=== PATIENT | male | born 1975 | race African-American/Black ===

== ENCOUNTER 2017-10-29 11:10 | Inpatient (IN) | payer MEDICARE, MEDICAID ==
--- NOTE | 2017-10-29 11:48 | ED ---
Psych HPI - General Stated Complaint: Mental Health Time Seen by Provider: 10/29/17 11:16 Source: patient, EMS, RN notes reviewed Mode of arrival: EMS Limitations: no limitations - History of Present Illness Initial Comments: This is a 42-year-old male presents emergency Department from [place] for psychiatric eval. Patient states that he has a history of psychiatric disorders states is not take his medication because he does not agree with him. Patient states he was at [facility] recently. Patient also has a history of cocaine abuse currently at [place]. Patient denies any new physical complaints he has chronic left-sided pain been out of the usual. Denies chest pain, shortness breath, nausea vomiting. - Related Data Home Medications Medication Instructions Recorded Confirmed Acetaminophen Tab [Tylenol Tab] 650 mg PO Q4H PRN MDD 6 tabs 10/29/17 10/29/17 Chlorpheniramine Maleate 4 mg PO Q4H PRN 10/29/17 10/29/17 Chlorthalidone [Hygroton] 25 mg PO DAILY@0630 10/29/17 10/29/17 Cholecalciferol [Vitamin D3] 1,000 unit PO DAILY@0630 10/29/17 10/29/17 Elviteg/Cob/Emtri/Tenof Alafen 1 tab PO DAILY@0600 10/29/17 10/29/17 [Genvoya Tablet] Esomeprazole Magnesium [NexIUM] 20 mg PO BID@0630,1700 10/29/17 10/29/17 Ibuprofen [Motrin] 600 mg PO Q6HR PRN 10/29/17 10/29/17 Multivitamins, Thera [Multivitamin 1 tab PO DAILY 10/29/17 10/29/17 (formulary)] PARoxetine [Paxil] 10 mg PO DAILY@0630 10/29/17 10/29/17 Paliperidone [Invega] 9 mg PO DAILY@0630 10/29/17 10/29/17 QUEtiapine FUMARATE [SEROquel] 600 mg PO HS 10/29/17 10/29/17 Thiamine [Vitamin B-1] 100 mg PO DAILY 10/29/17 10/29/17 amLODIPine [Norvasc] 5 mg PO DAILY@0630 10/29/17 10/29/17 cloNIDine HCL [Catapres] 0.1 - 0.3 mg PO BID PRN 10/29/17 10/29/17 Allergies Allergy/AdvReac Type Severity Reaction Status Date / Time Benzodiazepines Allergy Unknown Verified 10/29/17 11:45 Review of Systems ROS Statement: Those systems with pertinent positive or pertinent negative responses have been documented in the HPI. ROS Other: All systems not noted in ROS Statement are negative. Past Medical History Past Medical History: Unable to Obtain History of Any Multi-Drug Resistant Organisms: None Reported Past Surgical History: Unable to Obtain Past Psychological History: Schizophrenia Smoking Status: Never smoker Past Alcohol Use History: None Reported Past Drug Use History: Cocaine General Exam Limitations: no limitations General appearance: alert, in no apparent distress Head exam: Present: atraumatic, normocephalic, normal inspection Eye exam: Present: normal appearance, PERRL, EOMI. Absent: scleral icterus, conjunctival injection, periorbital swelling ENT exam: Present: normal exam, mucous membranes moist Neck exam: Present: normal inspection. Absent: tenderness, meningismus, lymphadenopathy Respiratory exam: Present: normal lung sounds bilaterally. Absent: respiratory distress, wheezes, rales, rhonchi, stridor Cardiovascular Exam: Present: regular rate, normal rhythm, normal heart sounds. Absent: systolic murmur, diastolic murmur, rubs, gallop, clicks GI/Abdominal exam: Present: soft, normal bowel sounds. Absent: distended, tenderness, guarding, rebound, rigid Back exam: Absent: CVA tenderness (R), CVA tenderness (L) Psychiatric exam: Present: anxious. Absent: homicidal ideation, suicidal ideation Skin exam: Present: warm, dry, intact, normal color. Absent: rash Course Vital Signs 10/29/17 11:22 Temperature 97.6 F Pulse Rate 54 L Respiratory 16 Rate Blood Pressure 156/77 O2 Sat by Pulse 100 Oximetry Disposition Clinical Impression: Psychosis Disposition: ADMITTED IP TO THIS HOSP Condition: Stable Referrals: Nonstaff,Physician [REFERRING] - 1-2 days
[2017-10-29 13:44] LABS: Amphetamine Screen,Urine Not Detected (NotDetected); Barbiturate Screen,Urine Not Detected (NotDetected); Benzodiazepines Screen,Urine Not Detected (NotDetected); Cocaine Screen,Urine Not Detected (NotDetected); Methadone Screen, Urine Not Detected (NotDetected); Opiate Screen,Urine Not Detected (NotDetected); Oxycodone Screen, Urine Not Detected (NotDetected); Phencyclidine Screen,Urine Not Detected (NotDetected); Tricyclic Antidepressant,Urine Not Detected (NotDetected); Urn Cannabinoid Scrn Not Detected (NotDetected)
[2017-10-29 15:46] VITALS: BMI 23.1
[2017-10-29] MEDS ORDERED: MAGNESIUM HYDROXIDE 2,400 MG/10 ML CUP PO PRN (16:11)
[2017-10-29] MEDS ORDERED: ACETAMINOPHEN TAB 325 MG TAB PO PRN (16:11)
[2017-10-29] MEDS ORDERED: MAG HYDROX/AL HYDROX/SIMETH 30 ML CUP PO PRN (16:11)
[2017-10-29] MEDS ORDERED: diphenhydrAMINE 25 MG CAP PO PRN (16:13)
[2017-10-29] MEDS ORDERED: LORazepam 2 MG/ML INJ IM PRN (16:27)
[2017-10-29] MEDS ORDERED: ZIPRASIDONE 20 MG VIAL IM PRN (16:27)
[2017-10-29] MEDS ORDERED: LORazepam 1 MG TAB PO PRN (16:27)
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
[2017-10-29] MEDS: PANTOPRAZOLE 40 MG TABLET PO SCH (17:27)
[2017-10-29 17:55] LABS: Appearance,Urine Clear (Clear); Bilirubin,Urine Negative (Negative); Blood,Urine Negative (Negative); Color,Urine Yellow; Glucose,Urine (UA) Negative (Negative); Ketones,Urine Negative (Negative); Leukocyte Esterase,Urine Negative (Negative); Nitrite,Urine Negative (Negative); Protein,Urine Negative (Negative); Specific Gravity,Urine 1.023 (1.001-1.035); Urobilinogen,Urine <2.0 mg/dL (<2.0)
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
[2017-10-29 18:45] LABS: Anisocytosis Slight; HCT 39.3 % (39.0-53.0); Hypochromasia Moderate; MCH 23.5 pg (25.0-35.0); MCHC 30.5 g/dL (31.0-37.0); MCV 77.1 fL (80.0-100.0); Mean Platelet Volume 8.7; Microcytosis Slight; Platelet Count 153 k/uL (150-450); RDW 17.2 % (11.5-15.5); WBC 6.7 k/uL (3.8-10.6)
--- NOTE | 2017-10-29 19:07 | XR ---
EXAMINATION TYPE: XR chest 2V DATE OF EXAM: 10/29/2017 COMPARISON: NONE HISTORY: Short of breath TECHNIQUE: Frontal and lateral views of the chest are obtained. FINDINGS: Heart and mediastinum are normal. Lungs are clear. Diaphragm is normal. Bony thorax appear s normal. Exam is limited by the arms over the heart on the lateral view. IMPRESSION: Normal chest
[2017-10-29 19:11] LABS: ALT 20 U/L (21-72); AST 19 U/L (17-59); Alkaline Phosphatase 76 U/L (38-126); Anion Gap 11 mmol/L; Blood Urea Nitrogen 17 mg/dL (9-20); Calcium 10.1 mg/dL (8.4-10.2); Carbon Dioxide 31 mmol/L (22-30); Chloride 98 mmol/L (98-107); Glucose 135 mg/dL (74-99); Magnesium 1.9 mg/dL (1.6-2.3); Phosphorus 4.3 mg/dL (2.5-4.5); Potassium 4.3 mmol/L (3.5-5.1); Sodium 140 mmol/L (137-145); Total Bilirubin 0.2 mg/dL (0.2-1.3); Total Protein 6.7 g/dL (6.3-8.2)
[2017-10-29] MEDS: PALIPERIDONE 3 MG TAB.ER.24 PO SCH (21:04)
[2017-10-29] MEDS: NYSTATIN 100,000 UNIT/ML SUSP 500,000 UNIT/5 ML CUP PO SCH (21:09)
[2017-10-30] MEDS: CHLORTHALIDONE 25 MG TAB PO SCH (06:36)
[2017-10-30] MEDS: CHOLECALCIFEROL 1,000 UNIT TAB PO SCH (06:37)
[2017-10-30] MEDS: amLODIPine 5 MG TAB PO SCH (06:37)
[2017-10-30] MEDS: PANTOPRAZOLE 40 MG TABLET PO SCH ×2 (06:37→16:57)
[2017-10-30] MEDS: (Elviteg/Cob/Emtri/Tenof Alafen [Genvoya Tablet] 1 TAB) PO SCH (06:38)
[2017-10-30] MEDS: NYSTATIN 100,000 UNIT/ML SUSP 500,000 UNIT/5 ML CUP PO SCH ×4 (09:06→21:17)
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
[2017-10-30] MEDS: MULTIVITAMINS, THERA 1 EACH TAB PO SCH (12:45)
[2017-10-30] MEDS: FERROUS SULFATE 325 MG TAB PO SCH (19:07)
[2017-10-30] MEDS: BENZOCAINE/MENTHOL LOZENG 1 EACH LOZENGE MUCOUS MEM PRN (19:09)
[2017-10-30] MEDS: PALIPERIDONE 3 MG TAB.ER.24 PO SCH (21:17)
[2017-10-31 01:58] LABS: Hemoglobin A1C 6.1 % (4.0-6.0)
[2017-10-31 02:16] LABS: Iron Saturation 5.32 (15.00-50.00)
[2017-10-31] MEDS ORDERED: guaiFENesin SYRUP 100MG/5ML 200 MG/10 ML CUP PO PRN (03:28)
[2017-10-31] MEDS: (Elviteg/Cob/Emtri/Tenof Alafen [Genvoya Tablet] 1 TAB) PO SCH ×2 (03:52→08:48)
[2017-10-31] MEDS: amLODIPine 5 MG TAB PO SCH (05:58)
[2017-10-31] MEDS: PANTOPRAZOLE 40 MG TABLET PO SCH ×2 (05:58→16:34)
[2017-10-31] MEDS: CHOLECALCIFEROL 1,000 UNIT TAB PO SCH (05:58)
[2017-10-31] MEDS: CHLORTHALIDONE 25 MG TAB PO SCH (05:58)
[2017-10-31] MEDS: FERROUS SULFATE 325 MG TAB PO SCH ×2 (08:47→16:33)
[2017-10-31] MEDS: NYSTATIN 100,000 UNIT/ML SUSP 500,000 UNIT/5 ML CUP PO SCH ×4 (08:47→21:06)
[2017-10-31] MEDS: LORATADINE 10 MG TAB PO SCH (08:47)
[2017-10-31] MEDS: BENZOCAINE/MENTHOL LOZENG 1 EACH LOZENGE MUCOUS MEM PRN (08:49)
[2017-10-31] MEDS ORDERED: MULTIVITAMINS, THERA 1 EACH TAB ONE (12:00)
[2017-10-31 12:31] LABS: T4/T8 Ratio (CD4:CD8) 1.4 (1.0-3.7)
[2017-10-31] MEDS: MULTIVITAMINS, THERA 1 EACH TAB PO SCH (13:36)
--- NOTE | 2017-10-31 14:00 | P.PN ---
Progress Note - Text Progress Note Date: 10/31/17 Interval History: Patient is a 42-year-old male who was seen today. Patient states that he slept well and is eating well. Patient reports no further headaches. Patient reports he continues to hear voices, stating that they are singing to him. Patient continued to ramble on after certain questions, some of it religiously preoccupied. Patient continues to cough and states that he thinks it is slightly better today. Patient reports that he does live with his father and 2 brothers and that his mother does not live with them but close by. Patient also reports that he thought he did well on Invega long-acting injectable. Mental Status: Appearance/Attitude: Patient is dressed in a hospital gown, stating that he is not wearing street clothes so that we can distinguish staff from patients, makes good eye contact and is cooperative Behavior: Patient does not display any psychomotor agitation or retardation Speech/Language: Patient's speech is spontaneous, at times rambling of normal volume and rhythm and he is coherent but not relevant at times Thought Process: Patient is tangential, religiously preoccupied and at times exhibits loose associations Thought Content: Patient reports that he is hearing voices, he describes them as singing and denies any visual hallucinations and remains religiously preoccupied, at times calling staff God. Patient reports that he slept well last evening, is eating well. He reports no headaches. Patient continues to have a cough Suicidal/Homicidal Ideation: Patient denies any current suicidal or homicidal ideation Sensorium/Cognition: Patient is alert and oriented to person, place, and time and his recent and remote memory are grossly intact. Mood/Affect: Patient's mood is pleasant and his affect is appropriate to his mood Insight/Judgment: Patient's insight and judgment are impaired Assessment: Patient continues to have auditory hallucinations, religiously preoccupied and at times is seen talking to himself on the unit. Patient has been cooperative and attending groups and activities. Patient states that his crack cocaine use was daily prior to his admission to [facility]. Patient continues to have a cough but denies any current headaches. Patient reports that he did well when he was on Invega long-acting injectable and is unable to tell me why he stopped going to the clinic or receiving his medication. Plan: Patient will continue on Invega 9 mg at bedtime and should the patient continued to show some progress will restart Invega long-acting injectable. Patient is being followed by the medical billing and coding specialist for his low hemoglobin, mildly elevated hemoglobin A1c. Patient has received his antiviral medication from [facility] and has been restarted on this. Patient continues to require hospitalization to further stabilize and decrease his psychotic symptoms.
[2017-10-31] MEDS: PALIPERIDONE 3 MG TAB.ER.24 PO SCH (21:06)
[2017-11-01] MEDS: PANTOPRAZOLE 40 MG TABLET PO SCH ×2 (05:41→16:51)
[2017-11-01] MEDS: CHLORTHALIDONE 25 MG TAB PO SCH (05:42)
[2017-11-01] MEDS: amLODIPine 5 MG TAB PO SCH (05:42)
[2017-11-01] MEDS: CHOLECALCIFEROL 1,000 UNIT TAB PO SCH ×2 (05:42→09:17)
[2017-11-01] MEDS: (Elviteg/Cob/Emtri/Tenof Alafen [Genvoya Tablet] 1 TAB) PO SCH (05:43)
[2017-11-01] MEDS: MULTIVITAMINS, THERA 1 EACH TAB PO SCH (09:17)
[2017-11-01] MEDS: LORATADINE 10 MG TAB PO SCH (09:17)
[2017-11-01] MEDS: NYSTATIN 100,000 UNIT/ML SUSP 500,000 UNIT/5 ML CUP PO SCH ×4 (09:18→21:08)
[2017-11-01] MEDS: FERROUS SULFATE 325 MG TAB PO SCH ×2 (09:19→16:51)
[2017-11-01] MEDS: BENZOCAINE/MENTHOL LOZENG 1 EACH LOZENGE MUCOUS MEM PRN (10:18)
--- NOTE | 2017-11-01 12:08 | P.PN ---
Progress Note - Text Progress Note Date: 11/01/17 Interval History: Patient is a 42-year-old male who was seen today, he was found in the hallway talking to himself. Patient during the interview was exhibiting loose associations and rambling. Patient reported that he was not hearing voices and stated that his cough was better and he slept better last evening. Patient states that gnosticist continues to be important for him and he does spend a lot of time reading the Bible. Patient is again dressed in a hospital gown when asked if he would like to wear his street clothes he says no he was prescribed these clothes. Patient denies any current headache Mental Status: Appearance/Attitude: Patient is dressed in a hospital gown, makes intermittent eye contact and is cooperative Behavior: Patient does not exhibit any psychomotor agitation or retardation, was seen in the hallway on approach talking to himself Speech/Language: Patient's speech is rambling, of normal volume and rhythm and he is coherent Thought Process: Patient exhibits loose associations Thought Content: Patient denies auditory or visual hallucinations, patient was seen on the unit talking to himself he denies any paranoid ideation and remains religiously preoccupied. Patient states that he is no longer having any headaches and that his cough is better. He states that he slept better and his appetite is good. Suicidal/Homicidal Ideation: Denies any current suicidal or homicidal ideation Sensorium/Cognition: Patient is alert and oriented to person, place, and time and his recent and remote memory are grossly intact Mood/Affect: Patient's mood is pleasant and his affect is blunted Insight/Judgment: Patient's insight and judgment are poor Assessment: Patient continues to be observed talking to himself on the unit, exhibiting loose associations and remains religiously preoccupied. Patient states that his cough and headache are improved and that he slept better and is eating well. Patient attends some groups and activities. Plan: Will increase patient's Invega to 12 mg at bedtime and observe over the weekend if there is no further improvement will consider changing to a different antipsychotic, should the patient do better over the weekend will consider using long-acting Invega on Saturday. Patient continues to require hospitalization to further stabilize his psychotic symptoms.
[2017-11-01] MEDS: PALIPERIDONE 6 MG TAB.ER.24 PO SCH (21:08)
[2017-11-02] MEDS: (Elviteg/Cob/Emtri/Tenof Alafen [Genvoya Tablet] 1 TAB) PO SCH (05:51)
[2017-11-02] MEDS: PANTOPRAZOLE 40 MG TABLET PO SCH ×2 (05:52→17:12)
[2017-11-02] MEDS: amLODIPine 5 MG TAB PO SCH (05:53)
[2017-11-02] MEDS: CHLORTHALIDONE 25 MG TAB PO SCH (05:53)
[2017-11-02] MEDS: LORATADINE 10 MG TAB PO SCH (09:52)
[2017-11-02] MEDS: NYSTATIN 100,000 UNIT/ML SUSP 500,000 UNIT/5 ML CUP PO SCH ×4 (09:52→21:07)
[2017-11-02] MEDS: FERROUS SULFATE 325 MG TAB PO SCH ×2 (09:52→17:12)
[2017-11-02] MEDS: MULTIVITAMINS, THERA 1 EACH TAB PO SCH (13:37)
--- NOTE | 2017-11-02 15:20 | P.PN ---
Progress Note - Text Progress Note Date: 11/02/17 Interval history: Patient seen in cross coverage today for Dr. Richardson. He seems to relay that he is eating enough. He does not voice any adverse psychotropic medication side effects. He describes his mood as happy today. Mental status exam: He is alert and cooperative with the interview. His speech is fluent, not rapid or pressured. Thought processes are showing some disorganization. He describes his mood as "happy." He does not verbalize any thoughts of harm to self or others. He makes reference to hearing God's voice at times when he is praying. He does not seem to verbalize any persecutory delusions. Plan: Patient will be maintained on current psychotropic medications. We'll continue to monitor status and monitor for any medication side effects. We'll continue to cover this patient for Dr. Richardson through the weekend.
[2017-11-02] MEDS: PALIPERIDONE 6 MG TAB.ER.24 PO SCH (21:07)
[2017-11-03] MEDS: amLODIPine 5 MG TAB PO SCH (06:45)
[2017-11-03] MEDS: (Elviteg/Cob/Emtri/Tenof Alafen [Genvoya Tablet] 1 TAB) PO SCH (06:45)
[2017-11-03] MEDS: CHLORTHALIDONE 25 MG TAB PO SCH (06:45)
[2017-11-03] MEDS: PANTOPRAZOLE 40 MG TABLET PO SCH ×2 (06:45→16:55)
[2017-11-03] MEDS: NYSTATIN 100,000 UNIT/ML SUSP 500,000 UNIT/5 ML CUP PO SCH ×4 (08:00→20:13)
[2017-11-03] MEDS: CHOLECALCIFEROL 1,000 UNIT TAB PO SCH (08:00)
[2017-11-03] MEDS: FERROUS SULFATE 325 MG TAB PO SCH ×2 (08:00→16:55)
[2017-11-03] MEDS: LORATADINE 10 MG TAB PO SCH (08:00)
[2017-11-03] MEDS: MULTIVITAMINS, THERA 1 EACH TAB PO SCH (12:21)
[2017-11-03] MEDS: BENZOCAINE/MENTHOL LOZENG 1 EACH LOZENGE MUCOUS MEM PRN (14:00)
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
[2017-11-03] MEDS: PALIPERIDONE 6 MG TAB.ER.24 PO SCH (20:13)
[2017-11-04] MEDS: amLODIPine 5 MG TAB PO SCH (05:48)
[2017-11-04] MEDS: (Elviteg/Cob/Emtri/Tenof Alafen [Genvoya Tablet] 1 TAB) PO SCH (05:48)
[2017-11-04] MEDS: CHLORTHALIDONE 25 MG TAB PO SCH (05:48)
[2017-11-04] MEDS: CHOLECALCIFEROL 1,000 UNIT TAB PO SCH (07:36)
[2017-11-04] MEDS: LORATADINE 10 MG TAB PO SCH (08:17)
[2017-11-04] MEDS: FERROUS SULFATE 325 MG TAB PO SCH ×2 (08:18→17:02)
[2017-11-04] MEDS: NYSTATIN 100,000 UNIT/ML SUSP 500,000 UNIT/5 ML CUP PO SCH ×4 (08:18→21:12)
[2017-11-04] MEDS: PANTOPRAZOLE 40 MG TABLET PO SCH ×2 (08:18→17:02)
[2017-11-04] MEDS: BENZOCAINE/MENTHOL LOZENG 1 EACH LOZENGE MUCOUS MEM PRN (08:34)
--- NOTE | 2017-11-04 11:40 | P.PN ---
Progress Note - Text Progress Note Date: 11/04/17 Interval History: Patient is a 42-year-old male who was seen today, he reports that he is no longer hearing voices and when he is seen talking in the hallway he states he is talking to the angels. Patient requested that he return to [place] for spiritual reasons. Patient states that he did sleep well last evening. Patient had no other concerns or complaints at this time. Mental Status: Appearance/Attitude: Patient is dressed in a hospital gown, makes good eye contact and is cooperative Behavior: Patient does not display any psychomotor agitation or retardation. Speech/Language: Patient's speech is rambling, of normal volume Thought Process: Patient exhibits loose associations Thought Content: Patient denies auditory or visual hallucinations, he remains privileges sleep preoccupied, stating that he is talking to the angels and wishes to return to [place] for spiritual reasons. Patient states that he did sleep last night and is eating well. Suicidal/Homicidal Ideation: Patient denies any suicidal or homicidal ideation at this time Sensorium/Cognition: Patient is alert and oriented to person, place, and time and his recent and remote memory are grossly intact Mood/Affect: Patient's mood is pleasant and his affect is flat Insight/Judgment: Patient's insight and judgment are impaired Assessment: Patient reports no auditory hallucinations, which she was having last week. Patient remains religiously preoccupied, is rambling and loose in his speech and thoughts. Patient does attend groups and activities but can be disruptive due to his rambling speech. He reports that he is sleeping and eating well. Patient reports no side effects from the medication. Plan: We'll continue with Invega 12 mg at bedtime, attempt to obtain information from his prior community mental health treatment as to whether or not patient responded well to Invega long-acting and what his baseline functioning was. Patient continues to require hospitalization to further stabilize his psychotic symptoms.
[2017-11-04] MEDS: MULTIVITAMINS, THERA 1 EACH TAB PO SCH (12:05)
[2017-11-04] MEDS: PALIPERIDONE 6 MG TAB.ER.24 PO SCH (21:12)
[2017-11-05] MEDS: CHLORTHALIDONE 25 MG TAB PO SCH ×2 (05:55→08:35)
[2017-11-05] MEDS: PANTOPRAZOLE 40 MG TABLET PO SCH ×2 (05:55→16:55)
[2017-11-05] MEDS: (Elviteg/Cob/Emtri/Tenof Alafen [Genvoya Tablet] 1 TAB) PO SCH (05:55)
[2017-11-05] MEDS: amLODIPine 5 MG TAB PO SCH ×2 (05:55→08:35)
[2017-11-05] MEDS: CHOLECALCIFEROL 1,000 UNIT TAB PO SCH (05:55)
[2017-11-05] MEDS: LORATADINE 10 MG TAB PO SCH (08:35)
[2017-11-05] MEDS: NYSTATIN 100,000 UNIT/ML SUSP 500,000 UNIT/5 ML CUP PO SCH ×4 (08:35→21:35)
[2017-11-05] MEDS: FERROUS SULFATE 325 MG TAB PO SCH ×2 (08:36→16:55)
[2017-11-05] MEDS ORDERED: PALIPERIDONE IM 234 MG/1.5 ML SYG IM STA (11:46)
--- NOTE | 2017-11-05 11:49 | P.PN ---
Progress Note - Text Progress Note Date: 11/05/17 Interval History: Patient is a 42-year-old male who was seen today, he reports that he is not hearing voices and is no longer talking to the angels. He states that he is not praying as much. Patient continues to remain dressed in hospital gown stating that he hasn't been given permission to where his clothes. Patient states that he is sleeping and eating well. Mental Status: Appearance/Attitude: Patient is dressed in a hospital gown, makes intermittent eye contact and is cooperative Behavior: Patient does not display any psychomotor agitation or retardation. Speech/Language: Patient's speech is of normal volume and rhythm, he continues to ramble and is coherent Thought Process: Patient exhibits loose associations, does respond to some questions in a goal-directed fashion Thought Content: Patient states that he is not hearing voices or seeing things, no paranoid ideation was elicited the patient remains religiously preoccupied. Patient states he is sleeping and eating well and reported no side effects from his medications. Suicidal/Homicidal Ideation: Denies any current suicidal or homicidal ideation Sensorium/Cognition: Patient is alert and oriented to person, place, time and his recent remote memory are grossly intact. Mood/Affect: Patient's mood is pleasant and his affect is slightly blunted Insight/Judgment: Patient's insight and judgment are impaired Assessment: Patient presents reporting that he is sleeping and eating well, states that he is no longer talking to the angels as he is no longer seeing him on the unit. He denies that he can and used to hear voices. Patient remains rambling and loose and religiously preoccupied. Patient however was slightly more goal-directed today when responding to some questions. Patient states he has no side effects from the medication. Patient has been attending groups and activities. Plan: Will start Invega cisterna 234 mg IM today, will discontinue his oral Invega and evaluate patient's response. Should patient's symptoms increase will consider the addition of Haldol to the Invega. Patient continues to require hospitalization to further stabilize his psychotic symptoms.
[2017-11-05] MEDS: MULTIVITAMINS, THERA 1 EACH TAB PO SCH (13:08)
[2017-11-06] MEDS: (Elviteg/Cob/Emtri/Tenof Alafen [Genvoya Tablet] 1 TAB) PO SCH (08:13)
[2017-11-06] MEDS: NYSTATIN 100,000 UNIT/ML SUSP 500,000 UNIT/5 ML CUP PO SCH ×4 (08:14→21:11)
[2017-11-06] MEDS: LORATADINE 10 MG TAB PO SCH (08:14)
[2017-11-06] MEDS: PANTOPRAZOLE 40 MG TABLET PO SCH ×2 (08:14→16:48)
[2017-11-06] MEDS: CHLORTHALIDONE 25 MG TAB PO SCH (08:14)
[2017-11-06] MEDS: CHOLECALCIFEROL 1,000 UNIT TAB PO SCH (08:14)
[2017-11-06] MEDS: FERROUS SULFATE 325 MG TAB PO SCH ×2 (08:14→16:48)
[2017-11-06] MEDS: amLODIPine 5 MG TAB PO SCH (08:14)
[2017-11-06] MEDS: MULTIVITAMINS, THERA 1 EACH TAB PO SCH (13:02)
[2017-11-06] MEDS ORDERED: PALIPERIDONE 3 MG TAB.ER.24 PO STA (13:39)
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
[2017-11-07] MEDS: amLODIPine 5 MG TAB PO SCH (06:01)
[2017-11-07] MEDS: CHOLECALCIFEROL 1,000 UNIT TAB PO SCH (06:01)
[2017-11-07] MEDS: CHLORTHALIDONE 25 MG TAB PO SCH (06:01)
[2017-11-07] MEDS: (Elviteg/Cob/Emtri/Tenof Alafen [Genvoya Tablet] 1 TAB) PO SCH (06:02)
[2017-11-07 06:35] VITALS: TEMP 97.4
[2017-11-07] MEDS: PANTOPRAZOLE 40 MG TABLET PO SCH ×2 (06:54→17:21)
[2017-11-07] MEDS: FERROUS SULFATE 325 MG TAB PO SCH ×2 (07:56→17:21)
[2017-11-07] MEDS: LORATADINE 10 MG TAB PO SCH (07:57)
[2017-11-07] MEDS: NYSTATIN 100,000 UNIT/ML SUSP 500,000 UNIT/5 ML CUP PO SCH ×4 (07:57→21:08)
[2017-11-07] MEDS: MULTIVITAMINS, THERA 1 EACH TAB PO SCH (07:57)
[2017-11-07] MEDS: PALIPERIDONE 3 MG TAB.ER.24 PO SCH (07:57)
--- NOTE | 2017-11-07 13:13 | P.PN ---
Progress Note - Text Progress Note Date: 11/07/17 Interval History: Patient is a 42-year-old male who was seen in his room today and was wearing a hospital gown over his street clothes. Patient states that he slept well last evening, stated that he was ready to return home. He reported that he was not having any suicidal thoughts and was not hearing any voices. Patient states he was also not paranoid and no longer was having thoughts that his food was poisoned. Patient stated that he was not feeling as irritable as he was yesterday and again apologized for not speaking with me on 2 occasions yesterday. Mental Status: Appearance/Attitude: Patient was appropriately dressed in street clothes after removing a hospital gown that he was wearing a top of them. He made intermittent eye contact and was cooperative Behavior: Patient did not exhibit any psychomotor agitation or retardation. Speech/Language: His speech was spontaneous and normal volume and rhythm and he was coherent Thought Process: Patient was more goal-directed, less evidence of loose associations and derailment Thought Content: Patient denied auditory or visual hallucinations, denied paranoid or delusional ideation and none was elicited. Patient continued to have evidence of congregation preoccupation but it was less prominent. Patient stated that he slept well last evening and stated that he ate breakfast this morning was no longer concerned that the food was poisoned as he was yesterday at lunchtime. Patient states that he is ready to return home and asked if he could attend the clubhouse. Suicidal/Homicidal Ideation: Patient denied any suicidal or homicidal ideation at this time Sensorium/Cognition: Patient is alert and oriented to person, place, time and his recent and remote memory are grossly intact. Mood/Affect: Patient's mood was pleasant and his affect was slightly blunted Insight/Judgment: Patient's insight and judgment are limited Assessment: Patient presented today with less derailment less evidence of loose associations during our conversation. Patient verbalized less congregation preoccupation and was reporting no auditory hallucinations or paranoid ideation. Patient verbalized that he was ready to return home to live with his father. Patient's responses to questions were more goal directed than they have been, he was not irritable this morning. Patient reported no side effects from his medication and none were elicited on exam. Plan: Patient will continue on Invega 3 mg in the morning, Invega Sustenna second injection will be due on November 12. I discussed with the patient possible discharge tomorrow to return home to live with his father and he was comfortable with this idea and stated that he was eager to return home. His discharge was discussed in the team treatment meeting and transportation to return him home remains a problem.
[2017-11-08] MEDS: (Elviteg/Cob/Emtri/Tenof Alafen [Genvoya Tablet] 1 TAB) PO SCH (06:24)
[2017-11-08] MEDS: amLODIPine 5 MG TAB PO SCH (06:24)
[2017-11-08] MEDS: CHOLECALCIFEROL 1,000 UNIT TAB PO SCH (06:24)
[2017-11-08] MEDS: CHLORTHALIDONE 25 MG TAB PO SCH (06:24)
[2017-11-08] MEDS: PANTOPRAZOLE 40 MG TABLET PO SCH (06:24)
[2017-11-08] MEDS: FERROUS SULFATE 325 MG TAB PO SCH (07:53)
[2017-11-08] MEDS: LORATADINE 10 MG TAB PO SCH (08:47)
[2017-11-08] MEDS: PALIPERIDONE 3 MG TAB.ER.24 PO SCH (08:47)
[2017-11-08] MEDS: NYSTATIN 100,000 UNIT/ML SUSP 500,000 UNIT/5 ML CUP PO SCH (08:47)
[2017-11-08 08:50] VITALS: BP 125/74; PULSE 86; RESP 16
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
[2017-11-08] MEDS: MULTIVITAMINS, THERA 1 EACH TAB PO SCH (12:21)
== END 2017-11-08 12:46 | disposition home or self-care (01) | DRG 885 ==
LOC: EC 11:10 → 3MHU 13:14
PROVIDERS: ADMIT Psychiatry & Neurology Psychiatry; ATTEND Psychiatry & Neurology Psychiatry
DX: F20.9 Schizophrenia, unspecified (principal); B37.9 Candidiasis, unspecified; Z21 Asymptomatic human immunodeficiency virus [HIV] infection status; F14.10 Cocaine abuse, uncomplicated; I10 Essential (primary) hypertension; K21.9 Gastro-esophageal reflux disease without esophagitis; T43.226A Underdosing of selective serotonin reuptake inhibitors, initial encounter; T43.596A Underdosing of other antipsychotics and neuroleptics, initial encounter; R51 Headache; R05 Cough; R45.4 Irritability and anger; Z72.0 Tobacco use; Z88.8 Allergy status to other drugs, medicaments and biological substances; Z79.1 Long term (current) use of non-steroidal anti-inflammatories (NSAID); Z81.8 Family history of other mental and behavioral disorders; Z91.19 Patient's noncompliance with other medical treatment and regimen; Z79.899 Other long term (current) drug therapy; Z82.49 Family history of ischemic heart disease and other diseases of the circulatory system
CPT/HCPCS: 71046; 80053; 80306; 81003; 82075; 82272; 82728; 83036; 83540; 83550; 83735; 84100; 84443; 85027; 86360; 99285